=== PATIENT | male | born 1955 | race Two or more races ===

== ENCOUNTER 2021-05-16 14:31 | Inpatient (IN) | payer MEDICAID, OTHER ==
[~2021-05-16] VITALS: Ht 160 cm; Wt 55.5 kg
--- NOTE | 2021-05-16 14:45 | NUR ---
PT BIB [facility]RE. FAMILY CALLED 911 BECAUSE PT HAS HAD POOR ORAL INTAKE X2 WEEKS. PT UNABLE TO GET OOB, EVEN TO USE RR. PER FAMILY, PT HAS NOT HAD A BM IN OVER A WEEK. PT HAS UNCONTROLLED DIABETES. 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 PT RECEIVED 1L NS BY EMS. PT CONFUSED AND FAMIL STATED THAT THEY SOMETIMES DONT UNDERSTAND WHAT HE IS SAYING. PT CACHECTIC, PANTS SOAKED AND SMELLING OF URINE.
[2021-05-16] MEDS ORDERED: SODIUM CHLORIDE 0.9% 1,000ML IVBOLUS ONE ×2 (15:00→17:00)
[2021-05-16] MEDS ORDERED: SODIUM CHLORIDE FLUSH 10ML SYR IVF ONE (15:00)
--- NOTE | 2021-05-16 15:21 | NUR ---
PER FAMILY, OK TO THROW CLOTHES AWAY. PT COVERED IN FECES AND URINE. MULTIPLE SACRAL PRESSURE ULCERS NOTED. PT CLEANED UP, BRIEF PUT ON FOR INCONTINENCE.
--- NOTE | 2021-05-16 15:30 | NUR ---
REPORT GIVEN TO TREVER AHUMADA.
[2021-05-16 15:54] LABS: MEAN CORPUSCULAR HEMOGLOBIN 32.4 pg (27.5-34.5); MEAN CORPUSCULAR HGB CONC 35.2 g/dL (33.2-36.2); MEAN PLATELET VOLUME 10.1 fL (7.4-10.4); PLATELET COUNT 95 x10^3/uL (130-400); RED BLOOD COUNT 3.54 x10^6/uL (4.38-5.82)
--- NOTE | 2021-05-16 16:00 | NUR ---
PT STRAIGHT CATHED PER MD ORDER. PT TOLERATED WELL, UA SENT
[2021-05-16 16:05] LABS: ALANINE AMINOTRANSFERASE 33 U/L (12-78); ALBUMIN 2.1 g/dL (3.4-5.0); ANION GAP 14 mmol/L (5-15); CHLORIDE 87 mmol/L (98-107); CREATININE 0.71 mg/dL (0.7-1.3)
[2021-05-16 16:06] LABS: INTERNATIONAL NORMALIZED RATIO 1.11 (0.93-1.1); PROTHROMBIN TIME 11.9 Seconds (9.6-11.5)
[2021-05-16 16:09] LABS: ALKALINE PHOSPHATASE 163 U/L (45-117); TOTAL PROTEIN 5.6 g/dL (6.4-8.2)
[2021-05-16 16:11] LABS: TROPONIN I 0.149 ng/mL (0.000-0.045)
[2021-05-16 16:27] LABS: MICROSCOPIC INDICATED
[2021-05-16] MEDS ORDERED: POTASSIUM CHLORIDE 20 MEQ PACKET ONE (16:29)
[2021-05-16] MEDS ORDERED: ASPIRIN 81 MG TABLET CHEW ONE (16:29)
[2021-05-16 16:53] LABS: ACETONE, SERUM Large (80mg/dL) (Negative)
[2021-05-16 16:55] LABS: BAND#(MANUAL) 3.15 x10^3/uL; BANDS%(MANUAL) 22 % (0-7); LYMPH#(MANUAL) 0.29 x10^3/uL (1-3.4); LYMPHS% (MANUAL) 2 % (22-44); SEG#(MANUAL) 10.87 x10^3/uL (1.8-6.8); SEGS% (MANUAL) 76 % (42-75)
[2021-05-16 16:56] LABS: <PLATELET ESTIMATE> DECREASED; <PLT MORPHOLOGY> NORMAL PLT MORPH; ECHINOCYTES 1+
--- NOTE | 2021-05-16 16:56 | NUR ---
PT RESTING IN GURNEY COMFORTABLY. FAMILY AT BEDSIDE. IVF INFUSING.
[2021-05-16] MEDS ORDERED: ASPIRIN 81 MG TABLET CHEW PO ONE (17:00)
[2021-05-16] MEDS ORDERED: ONDANSETRON ODT 4 MG PO PRN (17:00)
[2021-05-16] MEDS ORDERED: ONDANSETRON 2MG/ML, 2ML IVPush PRN (17:00)
[2021-05-16] MEDS ORDERED: POTASSIUM CHLORIDE 20 MEQ PACKET PO ONE (17:00)
[2021-05-16] MEDS ORDERED: SODIUM CHLORIDE 0.9% 1,000 ML IV ONE (17:30)
[2021-05-16] MEDS: INSULIN GLARGINE 100 UNITS/ML, PEN SQ-INSULIN SCH ×2 (17:30→20:21)
--- NOTE | 2021-05-16 17:30 | NUR ---
REPORT GIVEN TO ZITA PERERA.
[2021-05-16 17:41] LABS: TROPONIN I 0.159 ng/mL (0.000-0.045)
[2021-05-16] MEDS ORDERED: CEFTRIAXONE 1,000 MG in DEXTROSE 5% 50 ML IVPB SCH (18:00)
[2021-05-16] MEDS ORDERED: NS + 40MEQ KCL 1,000 ML IV SCH (18:04)
[2021-05-16 18:16] VITALS: BP 101/67
[2021-05-16] MEDS: PLEASE ENTER ALLERGIES MC SCH ×2 (18:34→22:12)
[2021-05-16 19:23] VITALS: BP 112/69
[2021-05-16] MEDS: HEPARIN 5,000 UNITS/ML, 1ML SQ SCH (20:20)
[2021-05-16] MEDS: ACETAMINOPHEN 325 MG TABLET PO PRN (20:21)
[2021-05-16] MEDS: ATORVASTATIN 40 MG TABLET PO SCH (20:21)
[2021-05-16] MEDS: INSULIN LISPRO 100 UNITS/ML, PEN SQ-INSULIN SCH (20:22)
[2021-05-16 22:04] LABS: ANION GAP 14 mmol/L (5-15); CALCIUM 8.1 mg/dL (8.5-10.1); CHLORIDE 94 mmol/L (98-107); CREATININE 0.62 mg/dL (0.7-1.3)
[2021-05-16] MEDS ORDERED: VANCOMYCIN PER PHARMACY MC PRN (23:00)
[2021-05-16] MEDS ORDERED: PHARMACOKINETIC MONITORING MC PRN (23:00)
[2021-05-16] MEDS ORDERED: PHARMACOKINETIC CONSULTATION MC ONE (23:00)
[2021-05-16] MEDS ORDERED: VANCOMYCIN 1,200 MG in SODIUM CHLORIDE 0.9% 250 ML IV ONE (23:00)
[2021-05-17] VITALS (9 sets, daily range): BP systolic 89–139; BP diastolic 53–74
[2021-05-17 05:51] LABS: BASOPHILS % (AUTO) 1 % (0-1); EOSINOPHILS % (AUTO) 0 % (1-7); LYMPHOCYTES % (AUTO) 2 % (22-44); MEAN CORPUSCULAR HEMOGLOBIN 32.5 pg (27.5-34.5); MEAN CORPUSCULAR HGB CONC 35.1 g/dL (33.2-36.2); MEAN PLATELET VOLUME 10.6 fL (7.4-10.4); MONOCYTES % (AUTO) 2 % (2-9); NEUTROPHILS % (AUTO) 96 % (42-75); PLATELET COUNT 68 x10^3/uL (130-400); RED BLOOD COUNT 3.16 x10^6/uL (4.38-5.82); RED CELL DISTRIBUTION WIDTH 14.3 % (9.4-14.8)
[2021-05-17 06:01] LABS: ANION GAP 10 mmol/L (5-15); CHLORIDE 97 mmol/L (98-107)
[2021-05-17 06:06] LABS: CREATININE 0.36 mg/dL (0.7-1.3)
[2021-05-17] MEDS ORDERED: OMNIPAQUE 350 MG/ML, 75ML BOTTLE ONE (06:21)
[2021-05-17] MEDS: CEFTRIAXONE 2 GM in DEXTROSE 5% 50 ML IVPB SCH (06:24)
[2021-05-17] MEDS: HEPARIN 5,000 UNITS/ML, 1ML SQ SCH ×2 (06:24→16:39)
[2021-05-17] MEDS: ASPIRIN 325 MG TABLET PO SCH (06:24)
[2021-05-17] MEDS: INSULIN LISPRO 100 UNITS/ML, PEN SQ-INSULIN SCH ×4 (07:00→20:45)
[2021-05-17] MEDS: PLEASE ENTER ALLERGIES MC SCH ×3 (10:00→20:47)
[2021-05-17] MEDS ORDERED: VANCOMYCIN 1,000 MG in SODIUM CHLORIDE 0.9% 100 ML IV SCH (11:00)
[2021-05-17 14:09] LABS: ANION GAP 10 mmol/L (5-15); CALCIUM 8.2 mg/dL (8.5-10.1); CHLORIDE 98 mmol/L (98-107); CREATININE 0.45 mg/dL (0.7-1.3)
[2021-05-17] MEDS: ACETAMINOPHEN 325 MG TABLET PO PRN (16:39)
[2021-05-17] MEDS ORDERED: FUROSEMIDE 20 MG/2 ML IV ONE (17:00)
[2021-05-17] MEDS ORDERED: OMNIPAQUE 350 MG/ML, 100ML BOTTLE ONE (17:42)
[2021-05-17] MEDS ORDERED: NS + 40MEQ KCL 1,000 ML IV SCH (18:04)
[2021-05-17] MEDS: NICOTINE 14MG/24 HR PATCH.TD24 TD SCH (18:10)
[2021-05-17] MEDS: INSULIN GLARGINE 100 UNITS/ML, PEN SQ-INSULIN SCH (20:45)
[2021-05-17] MEDS: ATORVASTATIN 40 MG TABLET PO SCH (20:46)
[2021-05-17] MEDS ORDERED: CARVEDILOL 3.125 MG TABLET PO SCH (21:00)
[2021-05-17 22:11] LABS: ANION GAP 7 mmol/L (5-15); CALCIUM 7.9 mg/dL (8.5-10.1); CHLORIDE 99 mmol/L (98-107); CREATININE 0.38 mg/dL (0.7-1.3)
[2021-05-18 02:00] VITALS: BP 73/41
[2021-05-18] MEDS ORDERED: SODIUM CHLORIDE 0.9% 1,000ML IVBOLUS ONE (02:30)
[2021-05-18 05:17] VITALS: BP 73/38
[2021-05-18 05:23] VITALS: BP 75/48
[2021-05-18] MEDS: ASPIRIN 325 MG TABLET PO SCH (05:24)
[2021-05-18] MEDS: CEFTRIAXONE 2 GM in DEXTROSE 5% 50 ML IVPB SCH (05:24)
[2021-05-18] MEDS: HEPARIN 5,000 UNITS/ML, 1ML SQ SCH (05:24)
[2021-05-18] MEDS ORDERED: SODIUM CHLORIDE 0.9%, 500ML IVBOLUS ONE ×2 (05:30→14:00)
[2021-05-18] MEDS ORDERED: VANCOMYCIN PER PHARMACY MC PRN (06:00)
[2021-05-18 06:26] LABS: MEAN CORPUSCULAR HEMOGLOBIN 31.8 pg (27.5-34.5); MEAN CORPUSCULAR HGB CONC 34.1 g/dL (33.2-36.2); MEAN PLATELET VOLUME 11.2 fL (7.4-10.4); RED BLOOD COUNT 2.59 x10^6/uL (4.38-5.82); RED CELL DISTRIBUTION WIDTH 14.5 % (9.4-14.8)
[2021-05-18] MEDS ORDERED: PHARMACOKINETIC CONSULTATION MC ONE (06:30)
[2021-05-18] MEDS ORDERED: PHARMACOKINETIC MONITORING MC PRN (06:30)
[2021-05-18 06:38] LABS: ANION GAP 9 mmol/L (5-15); CALCIUM 7.3 mg/dL (8.5-10.1); CHLORIDE 101 mmol/L (98-107); CREATININE 0.26 mg/dL (0.7-1.3)
[2021-05-18] MEDS: VANCOMYCIN 1,000 MG in SODIUM CHLORIDE 0.9% 100 ML IV SCH ×2 (06:45→18:11)
[2021-05-18 07:00] LABS: PLATELET COUNT 48 x10^3/uL (130-400)
[2021-05-18] MEDS: INSULIN LISPRO 100 UNITS/ML, PEN SQ-INSULIN SCH ×4 (07:00→20:58)
[2021-05-18 07:02] LABS: EOS#(MANUAL) 0.14 x10^3/uL (0.0-0.4); EOS% (MANUAL) 1 % (1-7); MONOS#(MANUAL) 0.28 x10^3/uL (0.3-2.7); MONOS% (MANUAL) 2 % (2-9)
[2021-05-18 07:03] LABS: BAND#(MANUAL) 1.53 x10^3/uL; BANDS%(MANUAL) 11 % (0-7); LYMPH#(MANUAL) 0.28 x10^3/uL (1-3.4); LYMPHS% (MANUAL) 2 % (22-44); SEG#(MANUAL) 11.68 x10^3/uL (1.8-6.8); SEGS% (MANUAL) 84 % (42-75); TOXIC GRAN 1+
[2021-05-18 07:04] LABS: ECHINOCYTES 1+; PMNS WITH VACUOLES 1+
[2021-05-18 07:05] LABS: <PLATELET ESTIMATE> DECREASED; LARGE PLATELETS 1+
[2021-05-18 07:58] VITALS: BP 71/41
[2021-05-18 08:09] VITALS: BP 70/43
[2021-05-18] MEDS ORDERED: NOREPINEPHRINE 1 MG/ML, 4ML ONE (08:57)
[2021-05-18 09:20] VITALS: BP 76/48
[2021-05-18] MEDS ORDERED: POTASSIUM CHLORIDE 40 MEQ in SODIUM CHLORIDE 0.9% 100 ML IV ONE (09:30)
[2021-05-18 09:39] LABS: D-DIMER (DIC) 3.82 ug/mlFEU (0.00-0.52); PROTIME 11.9 Seconds (9.6-11.5)
[2021-05-18] MEDS ORDERED: FENTANYL PF 100 MCG/2ML ONE (09:47)
[2021-05-18] MEDS ORDERED: FENTANYL PF 100 MCG/2ML IV ONE (10:00)
[2021-05-18] MEDS ORDERED: MAGNESIUM SULFATE PMX 2GM/50ML 50 ML IV ONE (10:30)
[2021-05-18] MEDS ORDERED: DEXTROSE 50%, 50ML SYRINGE ONE (11:39)
[2021-05-18] MEDS ORDERED: DEXTROSE 4 GM TAB.CHEW PO PRN (12:00)
[2021-05-18] MEDS ORDERED: DEXTROSE 50%, 50ML SYRINGE IVPush PRN (12:00)
[2021-05-18] MEDS ORDERED: GLUCAGON 1 MG IM PRN (12:00)
[2021-05-18] MEDS ORDERED: ETOMIDATE 20 MG/10 ML IVPush ONE (12:30)
[2021-05-18] MEDS ORDERED: MIDAZOLAM 1 MG/ML, 5ML IVPush ONE (12:30)
[2021-05-18] MEDS: PROPOFOL 100 ML IV PRN ×2 (12:33→22:35)
[2021-05-18] MEDS ORDERED: PHARMACY MAY ADJ FOR RENAL FX MC SCH (13:00)
[2021-05-18] MEDS ORDERED: LIDOCAINE-MPF 1%, 2ML ENDO PRN (13:00)
[2021-05-18] MEDS ORDERED: FENTANYL PF 100 MCG/2ML IVPush PRN (13:00)
[2021-05-18] MEDS ORDERED: VASOPRESSIN 20 UNIT in SODIUM CHLORIDE 0.9% 99 ML IV PRN (14:00)
[2021-05-18] MEDS: SODIUM CHLORIDE 0.9% 1,000 ML IV SCH (14:03)
[2021-05-18] MEDS: NOREPINEPHRINE 8 MG in SODIUM CHLORIDE 0.9% 242 ML IV PRN ×2 (16:47→22:36)
[2021-05-18] MEDS: NICOTINE 14MG/24 HR PATCH.TD24 TD SCH (17:26)
[2021-05-18] MEDS: ATORVASTATIN 40 MG TABLET PO SCH (20:57)
[2021-05-18] MEDS: SODIUM CHLORIDE FLUSH 10ML SYR IVF SCH (20:57)
[2021-05-19] MEDS: SODIUM CHLORIDE 0.9% 1,000 ML IV SCH ×2 (02:41→09:20)
[2021-05-19] MEDS: INSULIN LISPRO 100 UNITS/ML, PEN SQ-INSULIN SCH ×4 (04:18→20:27)
[2021-05-19 04:47] LABS: BASOPHILS % (AUTO) 0 % (0-1); EOSINOPHILS % (AUTO) 0 % (1-7); LYMPHOCYTES % (AUTO) 3 % (22-44); MEAN CORPUSCULAR HEMOGLOBIN 31.8 pg (27.5-34.5); MEAN CORPUSCULAR HGB CONC 34.2 g/dL (33.2-36.2); MEAN PLATELET VOLUME 10.5 fL (7.4-10.4); MONOCYTES % (AUTO) 2 % (2-9); NEUTROPHILS % (AUTO) 95 % (42-75); PLATELET COUNT 59 x10^3/uL (130-400); RED BLOOD COUNT 2.72 x10^6/uL (4.38-5.82); RED CELL DISTRIBUTION WIDTH 14.8 % (9.4-14.8)
[2021-05-19 04:56] LABS: ANION GAP 10 mmol/L (5-15); CALCIUM 6.8 mg/dL (8.5-10.1); CHLORIDE 107 mmol/L (98-107); CREATININE 0.28 mg/dL (0.7-1.3)
[2021-05-19] MEDS: CEFTRIAXONE 2 GM in DEXTROSE 5% 50 ML IVPB SCH (06:30)
[2021-05-19] MEDS ORDERED: CALCIUM GLUCONATE 4.6 MEQ in SODIUM CHLORIDE 0.9% 100 ML IV ONE (06:30)
[2021-05-19] MEDS ORDERED: POTASSIUM CHLORIDE 20 MEQ PACKET PO ONE (06:30)
[2021-05-19] MEDS: ASPIRIN 325 MG TABLET PO SCH (06:31)
[2021-05-19] MEDS: VANCOMYCIN 1,000 MG in SODIUM CHLORIDE 0.9% 100 ML IV SCH ×2 (07:30→18:35)
[2021-05-19] MEDS: NOREPINEPHRINE 8 MG in SODIUM CHLORIDE 0.9% 242 ML IV PRN ×3 (08:37→21:40)
[2021-05-19] MEDS: SODIUM CHLORIDE FLUSH 10ML SYR IVF SCH ×2 (09:18→20:27)
--- NOTE | 2021-05-19 12:05 | NUR ---
TF per RD recs: trickle feeds w/ end goal rate of 20mL/hr per MD verbal/phone order. Recommend changing TF formula to Vital AF 1.2 semi-elemental formula to promote increased TF tolerance while on high pressor rate and with severe PCM. Recommend Thiamine for metabolic support. Recommend monitoring serum phosphorus and magnesium daily and replete as needed d/t severe PCM and high refeeding risk.
[2021-05-19] MEDS: FENTANYL PF 1,000 MCG in SODIUM CHLORIDE 0.9% 80 ML IV PRN (15:26)
[2021-05-19] MEDS: NICOTINE 14MG/24 HR PATCH.TD24 TD SCH (15:43)
[2021-05-19] MEDS: PROPOFOL 100 ML IV PRN (18:38)
[2021-05-19] MEDS: ATORVASTATIN 40 MG TABLET PO SCH (20:27)
[2021-05-20] MEDS: SODIUM CHLORIDE 0.9% 1,000 ML IV SCH (00:27)
[2021-05-20] MEDS: NOREPINEPHRINE 8 MG in SODIUM CHLORIDE 0.9% 242 ML IV PRN ×4 (03:22→23:18)
[2021-05-20] MEDS: FENTANYL PF 1,000 MCG in SODIUM CHLORIDE 0.9% 80 ML IV PRN ×2 (03:22→15:36)
[2021-05-20 03:59] LABS: BASOPHILS % (AUTO) 0 % (0-1); EOSINOPHILS % (AUTO) 0 % (1-7); LYMPHOCYTES % (AUTO) 3 % (22-44); MEAN CORPUSCULAR HEMOGLOBIN 32.2 pg (27.5-34.5); MEAN CORPUSCULAR HGB CONC 34.9 g/dL (33.2-36.2); MEAN PLATELET VOLUME 10.1 fL (7.4-10.4); MONOCYTES % (AUTO) 3 % (2-9); NEUTROPHILS % (AUTO) 94 % (42-75); PLATELET COUNT 65 x10^3/uL (130-400); RED BLOOD COUNT 2.75 x10^6/uL (4.38-5.82); RED CELL DISTRIBUTION WIDTH 15.4 % (9.4-14.8)
[2021-05-20 04:02] LABS: ANION GAP 13 mmol/L (5-15); CALCIUM 6.6 mg/dL (8.5-10.1); CHLORIDE 108 mmol/L (98-107); CREATININE 0.25 mg/dL (0.7-1.3)
[2021-05-20] MEDS: VANCOMYCIN 1,000 MG in SODIUM CHLORIDE 0.9% 100 ML IV SCH (05:24)
[2021-05-20] MEDS: CEFTRIAXONE 2 GM in DEXTROSE 5% 50 ML IVPB SCH (05:24)
[2021-05-20] MEDS: INSULIN LISPRO 100 UNITS/ML, PEN SQ-INSULIN SCH ×4 (05:29→20:07)
[2021-05-20] MEDS ORDERED: MAGNESIUM SULFATE PMX 2GM/50ML 50 ML IV ONE (06:30)
[2021-05-20] MEDS ORDERED: CALCIUM CHLORIDE 27.2 MEQ in SODIUM CHLORIDE 0.9% 100 ML IV ONE (06:30)
[2021-05-20] MEDS: SODIUM CHLORIDE FLUSH 10ML SYR IVF SCH ×2 (09:00→20:05)
[2021-05-20] MEDS: METHYLNALTREXONE 12 MG/0.6 ML SYR SQ SCH (09:01)
[2021-05-20] MEDS: POTASSIUM CHLORIDE 20 MEQ PACKET PO SCH ×2 (09:01→20:05)
[2021-05-20] MEDS: POTASSIUM CHLORIDE 10 MEQ in LACTATED RINGERS 1,000 ML IV SCH (10:04)
[2021-05-20] MEDS: PROPOFOL 100 ML IV PRN ×2 (10:05→20:05)
[2021-05-20] MEDS: NICOTINE 14MG/24 HR PATCH.TD24 TD SCH (16:17)
[2021-05-20] MEDS: ATORVASTATIN 40 MG TABLET PO SCH (20:04)
[2021-05-21] MEDS: POTASSIUM CHLORIDE 10 MEQ in LACTATED RINGERS 1,000 ML IV SCH (00:17)
[2021-05-21] MEDS: FENTANYL PF 1,000 MCG in SODIUM CHLORIDE 0.9% 80 ML IV PRN ×3 (02:31→20:27)
[2021-05-21] MEDS: INSULIN LISPRO 100 UNITS/ML, PEN SQ-INSULIN SCH ×4 (03:00→20:38)
[2021-05-21] MEDS: CEFTRIAXONE 2 GM in DEXTROSE 5% 50 ML IVPB SCH (04:52)
[2021-05-21] MEDS: NOREPINEPHRINE 8 MG in SODIUM CHLORIDE 0.9% 242 ML IV PRN ×3 (04:52→20:25)
[2021-05-21 05:17] LABS: BASOPHILS % (AUTO) 0 % (0-1); EOSINOPHILS % (AUTO) 0 % (1-7); LYMPHOCYTES % (AUTO) 4 % (22-44); MEAN CORPUSCULAR HEMOGLOBIN 31.7 pg (27.5-34.5); MEAN CORPUSCULAR HGB CONC 34.3 g/dL (33.2-36.2); MEAN PLATELET VOLUME 9.5 fL (7.4-10.4); MONOCYTES % (AUTO) 3 % (2-9); NEUTROPHILS % (AUTO) 93 % (42-75); PLATELET COUNT 73 x10^3/uL (130-400); RED BLOOD COUNT 2.78 x10^6/uL (4.38-5.82); RED CELL DISTRIBUTION WIDTH 15.3 % (9.4-14.8)
[2021-05-21] MEDS: PROPOFOL 100 ML IV PRN ×2 (05:22→17:10)
[2021-05-21 06:04] LABS: ANION GAP 11 mmol/L (5-15); CALCIUM 7.3 mg/dL (8.5-10.1); CHLORIDE 111 mmol/L (98-107); CREATININE 0.27 mg/dL (0.7-1.3)
[2021-05-21] MEDS: MIDODRINE 5 MG TABLET PO SCH ×3 (09:00→20:27)
[2021-05-21] MEDS: SODIUM CHLORIDE FLUSH 10ML SYR IVF SCH ×2 (09:01→20:28)
[2021-05-21] MEDS ORDERED: FILTER, DISP 1.2 MICRON FOR TPN/PVN IV PRN (11:00)
[2021-05-21] MEDS ORDERED: POTASSIUM CHLORIDE 10 MEQ in LACTATED RINGERS 1,000 ML IV SCH (11:00)
[2021-05-21] MEDS: NICOTINE 14MG/24 HR PATCH.TD24 TD SCH (16:17)
[2021-05-21] MEDS ORDERED: TPN PER PHARMACY MC SCH (17:00)
[2021-05-21] MEDS ORDERED: STERILE WATER IV SCH (17:00)
[2021-05-21] MEDS ORDERED: AMINO ACID 10% IV SCH (17:00)
[2021-05-21] MEDS ORDERED: [UNRECOGNIZED DRUG - OTHER] IV SCH (17:00)
[2021-05-21] MEDS ORDERED: DEXTROSE 70% IV SCH (17:00)
[2021-05-21] MEDS ORDERED: DEXTROSE 10% 500 ML IV PRN (17:00)
[2021-05-21] MEDS: ATORVASTATIN 40 MG TABLET PO SCH (20:27)
[2021-05-22] MEDS: NOREPINEPHRINE 8 MG in SODIUM CHLORIDE 0.9% 242 ML IV PRN ×3 (02:17→18:12)
[2021-05-22] MEDS: INSULIN LISPRO 100 UNITS/ML, PEN SQ-INSULIN SCH ×4 (03:00→20:59)
[2021-05-22] MEDS: FENTANYL PF 1,000 MCG in SODIUM CHLORIDE 0.9% 80 ML IV PRN ×3 (04:43→20:09)
[2021-05-22] MEDS: CEFTRIAXONE 2 GM in DEXTROSE 5% 50 ML IVPB SCH (04:47)
[2021-05-22] MEDS: PROPOFOL 100 ML IV PRN ×2 (04:49→16:44)
[2021-05-22 05:15] LABS: BASOPHILS % (AUTO) 0 % (0-1); EOSINOPHILS % (AUTO) 0 % (1-7); LYMPHOCYTES % (AUTO) 5 % (22-44); MEAN CORPUSCULAR HEMOGLOBIN 31.8 pg (27.5-34.5); MEAN CORPUSCULAR HGB CONC 34.1 g/dL (33.2-36.2); MEAN PLATELET VOLUME 9.8 fL (7.4-10.4); MONOCYTES % (AUTO) 2 % (2-9); NEUTROPHILS % (AUTO) 93 % (42-75); PLATELET COUNT 61 x10^3/uL (130-400); RED BLOOD COUNT 2.73 x10^6/uL (4.38-5.82); RED CELL DISTRIBUTION WIDTH 15.8 % (9.4-14.8)
[2021-05-22 05:45] LABS: ANISOCYTOSIS 1+; ECHINOCYTES 1+; POLYCHROMASIA 1+
[2021-05-22 05:47] LABS: <PLATELET ESTIMATE> DECREASED; <PLT MORPHOLOGY> NORMAL PLT MORPH; ACANTHOCYTES 1+; SPHEROCYTES 1+
[2021-05-22 06:14] LABS: ALANINE AMINOTRANSFERASE 32 U/L (12-78); ANION GAP 8 mmol/L (5-15); CALCIUM 6.9 mg/dL (8.5-10.1); CHLORIDE 109 mmol/L (98-107); CREATININE 0.34 mg/dL (0.7-1.3); TRIGLYCERIDES 65 mg/dL (50-200)
[2021-05-22 06:21] LABS: ALKALINE PHOSPHATASE 492 U/L (45-117); BILIRUBIN,TOTAL 1.3 mg/dL (0.2-1.0); TOTAL PROTEIN 4.6 g/dL (6.4-8.2)
[2021-05-22 06:23] LABS: PREALBUMIN < 3.0 mg/dL (20.0-40.0)
[2021-05-22] MEDS ORDERED: CALCIUM GLUCONATE 9.2 MEQ in SODIUM CHLORIDE 0.9% 100 ML IV ONE (07:00)
[2021-05-22] MEDS: SODIUM CHLORIDE FLUSH 10ML SYR IVF SCH ×2 (07:31→20:40)
[2021-05-22] MEDS: METHYLNALTREXONE 12 MG/0.6 ML SYR SQ SCH (09:25)
[2021-05-22] MEDS: MIDODRINE 5 MG TABLET PO SCH ×3 (09:25→20:40)
[2021-05-22] MEDS: NICOTINE 14MG/24 HR PATCH.TD24 TD SCH (16:27)
[2021-05-22] MEDS: LACTATED RINGERS 1,000 ML IV SCH (16:44)
[2021-05-22] MEDS ORDERED: AMINO ACID 10% IV SCH (17:00)
[2021-05-22] MEDS ORDERED: SOY IV SCH (17:00)
[2021-05-22] MEDS ORDERED: FAT EMUL IV SCH (17:00)
[2021-05-22] MEDS ORDERED: MCT IV SCH (17:00)
[2021-05-22] MEDS ORDERED: FILTER, DISP 1.2 MICRON FOR TPN/PVN IV PRN (17:00)
[2021-05-22] MEDS ORDERED: OLIV IV SCH (17:00)
[2021-05-22] MEDS ORDERED: FISH OIL IV SCH (17:00)
[2021-05-22] MEDS ORDERED: DEXTROSE 70% IV SCH (17:00)
[2021-05-22] MEDS ORDERED: [UNRECOGNIZED DRUG - OTHER] IV SCH (17:00)
[2021-05-22] MEDS: ATORVASTATIN 40 MG TABLET PO SCH (20:40)
[2021-05-23] MEDS: PROPOFOL 100 ML IV PRN ×2 (03:18→14:21)
[2021-05-23] MEDS: INSULIN LISPRO 100 UNITS/ML, PEN SQ-INSULIN SCH ×4 (03:21→21:00)
[2021-05-23 04:00] LABS: BASOPHILS % (AUTO) 0 % (0-1); EOSINOPHILS % (AUTO) 0 % (1-7); LYMPHOCYTES % (AUTO) 4 % (22-44); MEAN CORPUSCULAR HEMOGLOBIN 31.4 pg (27.5-34.5); MEAN PLATELET VOLUME 10.2 fL (7.4-10.4); MONOCYTES % (AUTO) 2 % (2-9); NEUTROPHILS % (AUTO) 94 % (42-75); PLATELET COUNT 62 x10^3/uL (130-400); RED CELL DISTRIBUTION WIDTH 15.5 % (9.4-14.8)
[2021-05-23 04:09] LABS: ANION GAP 5 mmol/L (5-15); CALCIUM 6.7 mg/dL (8.5-10.1); CHLORIDE 108 mmol/L (98-107); CREATININE 0.33 mg/dL (0.7-1.3)
[2021-05-23] MEDS: FENTANYL PF 2,500 MCG in SODIUM CHLORIDE 0.9% 200 ML IV PRN (05:07)
[2021-05-23] MEDS: NOREPINEPHRINE 8 MG in SODIUM CHLORIDE 0.9% 242 ML IV PRN ×2 (05:08→16:32)
[2021-05-23] MEDS: CEFTRIAXONE 2 GM in DEXTROSE 5% 50 ML IVPB SCH (05:08)
[2021-05-23] MEDS: SODIUM CHLORIDE FLUSH 10ML SYR IVF SCH ×2 (09:49→21:56)
[2021-05-23] MEDS: MIDODRINE 5 MG TABLET PO SCH ×3 (09:49→21:56)
[2021-05-23] MEDS: PANTOPRAZOLE 40 MG IV IVPush SCH (09:49)
[2021-05-23] MEDS ORDERED: CALCIUM CHLORIDE 27.2 MEQ in SODIUM CHLORIDE 0.9% 100 ML IV ONE (10:00)
[2021-05-23] MEDS ORDERED: PANTOPRAZOLE 40 MG IV IVPush SCH (14:00)
[2021-05-23] MEDS ORDERED: SOY IV SCH (17:00)
[2021-05-23] MEDS ORDERED: FAT EMUL IV SCH (17:00)
[2021-05-23] MEDS ORDERED: FISH OIL IV SCH (17:00)
[2021-05-23] MEDS ORDERED: AMINO ACID 10% IV SCH (17:00)
[2021-05-23] MEDS ORDERED: MCT IV SCH (17:00)
[2021-05-23] MEDS ORDERED: FILTER, DISP 1.2 MICRON FOR TPN/PVN IV PRN (17:00)
[2021-05-23] MEDS ORDERED: OLIV IV SCH (17:00)
[2021-05-23] MEDS ORDERED: [UNRECOGNIZED DRUG - OTHER] IV SCH (17:00)
[2021-05-23] MEDS ORDERED: DEXTROSE 70% IV SCH (17:00)
[2021-05-23] MEDS: NICOTINE 14MG/24 HR PATCH.TD24 TD SCH (17:18)
[2021-05-23] MEDS: ATORVASTATIN 40 MG TABLET PO SCH (21:56)
[2021-05-24] MEDS: LACTATED RINGERS 1,000 ML IV SCH (01:05)
[2021-05-24] MEDS: INSULIN LISPRO 100 UNITS/ML, PEN SQ-INSULIN SCH ×5 (02:52→23:18)
[2021-05-24] MEDS: NOREPINEPHRINE 8 MG in SODIUM CHLORIDE 0.9% 242 ML IV PRN ×3 (02:55→22:05)
[2021-05-24] MEDS: PROPOFOL 100 ML IV PRN ×3 (02:56→16:54)
[2021-05-24] MEDS: FENTANYL PF 2,500 MCG in SODIUM CHLORIDE 0.9% 200 ML IV PRN ×2 (02:56→16:52)
[2021-05-24 03:00] LABS: BASOPHILS % (AUTO) 0 % (0-1); EOSINOPHILS % (AUTO) 0 % (1-7); LYMPHOCYTES % (AUTO) 4 % (22-44); MEAN CORPUSCULAR HGB CONC 34.2 g/dL (33.2-36.2); MEAN PLATELET VOLUME 10.2 fL (7.4-10.4); MONOCYTES % (AUTO) 2 % (2-9); NEUTROPHILS % (AUTO) 93 % (42-75); PLATELET COUNT 50 x10^3/uL (130-400); RED BLOOD COUNT 2.67 x10^6/uL (4.38-5.82); RED CELL DISTRIBUTION WIDTH 15.5 % (9.4-14.8)
[2021-05-24] MEDS: CEFTRIAXONE 2 GM in DEXTROSE 5% 50 ML IVPB SCH (05:54)
[2021-05-24 07:34] LABS: ANION GAP 6 mmol/L (5-15); CALCIUM 7.2 mg/dL (8.5-10.1); CHLORIDE 106 mmol/L (98-107); CREATININE 0.36 mg/dL (0.7-1.3)
[2021-05-24] MEDS: SODIUM CHLORIDE FLUSH 10ML SYR IVF SCH ×2 (09:43→19:57)
[2021-05-24] MEDS: PANTOPRAZOLE 40 MG IV IVPush SCH (09:43)
[2021-05-24] MEDS: METHYLNALTREXONE 12 MG/0.6 ML SYR SQ SCH (09:44)
[2021-05-24] MEDS: MIDODRINE 5 MG TABLET PO SCH ×3 (09:44→19:57)
[2021-05-24 10:13] LABS: ANION GAP 5 mmol/L (5-15); CALCIUM 7.1 mg/dL (8.5-10.1); CHLORIDE 106 mmol/L (98-107); CREATININE 0.43 mg/dL (0.7-1.3)
[2021-05-24] MEDS ORDERED: [UNRECOGNIZED DRUG - OTHER] IV SCH (17:00)
[2021-05-24] MEDS ORDERED: FAT EMUL IV SCH (17:00)
[2021-05-24] MEDS ORDERED: MCT IV SCH (17:00)
[2021-05-24] MEDS ORDERED: DEXTROSE 70% IV SCH (17:00)
[2021-05-24] MEDS ORDERED: AMINO ACID 10% IV SCH (17:00)
[2021-05-24] MEDS ORDERED: SOY IV SCH (17:00)
[2021-05-24] MEDS ORDERED: OLIV IV SCH (17:00)
[2021-05-24] MEDS ORDERED: FISH OIL IV SCH (17:00)
[2021-05-24] MEDS: NICOTINE 14MG/24 HR PATCH.TD24 TD SCH (17:09)
[2021-05-24] MEDS: ATORVASTATIN 40 MG TABLET PO SCH (19:57)
[2021-05-25] MEDS: PROPOFOL 100 ML IV PRN ×2 (02:42→08:36)
[2021-05-25] MEDS: INSULIN LISPRO 100 UNITS/ML, PEN SQ-INSULIN SCH ×2 (04:31→11:00)
[2021-05-25] MEDS: CEFTRIAXONE 2 GM in DEXTROSE 5% 50 ML IVPB SCH (04:32)
[2021-05-25 04:38] LABS: BASOPHILS % (AUTO) 0 % (0-1); EOSINOPHILS % (AUTO) 0 % (1-7); LYMPHOCYTES % (AUTO) 5 % (22-44); MEAN CORPUSCULAR HEMOGLOBIN 31.3 pg (27.5-34.5); MEAN CORPUSCULAR HGB CONC 34.3 g/dL (33.2-36.2); MEAN PLATELET VOLUME 10.4 fL (7.4-10.4); MONOCYTES % (AUTO) 4 % (2-9); NEUTROPHILS % (AUTO) 91 % (42-75); RED BLOOD COUNT 2.67 x10^6/uL (4.38-5.82); RED CELL DISTRIBUTION WIDTH 15.5 % (9.4-14.8)
[2021-05-25 04:43] LABS: PLATELET COUNT 43 x10^3/uL (130-400)
[2021-05-25 04:54] LABS: ANION GAP 3 mmol/L (5-15); CALCIUM 7.1 mg/dL (8.5-10.1); CHLORIDE 105 mmol/L (98-107); CREATININE 0.39 mg/dL (0.7-1.3)
[2021-05-25] MEDS ORDERED: LACTULOSE 20 GM/30 ML UDC PO PRN (08:30)
[2021-05-25] MEDS ORDERED: BISACODYL 10 MG SUPP PR PRN (08:30)
[2021-05-25] MEDS: NOREPINEPHRINE 8 MG in SODIUM CHLORIDE 0.9% 242 ML IV PRN (08:36)
[2021-05-25] MEDS: FENTANYL PF 2,500 MCG in SODIUM CHLORIDE 0.9% 200 ML IV PRN (08:36)
[2021-05-25] MEDS: PANTOPRAZOLE 40 MG IV IVPush SCH (08:37)
[2021-05-25] MEDS: SODIUM CHLORIDE FLUSH 10ML SYR IVF SCH (08:37)
[2021-05-25] MEDS: MIDODRINE 5 MG TABLET PO SCH (08:37)
[2021-05-25 08:58] LABS: HCT (SEDRATE) 24.4 % (39.2-51.8)
[2021-05-25] MEDS ORDERED: DOCUSATE 50 MG/5 ML, 10ML UDC PO SCH (09:00)
[2021-05-25] MEDS ORDERED: LORazepam 2 MG/ML, 1ML IV ONE (15:00)
[2021-05-25] MEDS ORDERED: LORazepam 2 MG/ML, 1ML IV PRN (15:00)
[2021-05-25] MEDS ORDERED: MORPHINE SULFATE 4 MG/ML, 1ML IV PRN (15:00)
[2021-05-25] MEDS ORDERED: ONDANSETRON 2MG/ML, 2ML IV PRN (15:00)
[2021-05-25] MEDS ORDERED: MORPHINE SULFATE 4 MG/ML, 1ML IV ONE (15:00)
[2021-05-25] MEDS ORDERED: ATROPINE OPHTH SOLN 1%, 5ML PO PRN (15:00)
[2021-05-25] MEDS ORDERED: DEXTROSE 70% IV SCH (17:00)
[2021-05-25] MEDS ORDERED: [UNRECOGNIZED DRUG - OTHER] IV SCH (17:00)
[2021-05-25] MEDS ORDERED: AMINO ACID 10% IV SCH (17:00)
[2021-05-25] MEDS ORDERED: STERILE WATER IV SCH (17:00)
[2021-05-25] MEDS ORDERED: SENNA 176 MG/5 ML ORAL SOL NG SCH (21:00)
== END 2021-05-25 20:42 | disposition expired | DRG 870 ==
LOC: ED 15:24 → EDIP 16:35 → 4EST 18:01 → CCU 05-18 08:54
PROVIDERS: ADMIT Internal Medicine; ATTEND Internal Medicine
PROC: 0T9B70Z Drainage of Bladder with Drainage Device, Via Natural or Artificial Opening (ICD-10-PCS; 2021-05-16)
PROC: 5A0935A Assistance with Respiratory Ventilation, Less than 24 Consecutive Hours, High Flow/Velocity Cannula (ICD-10-PCS; 2021-05-17)
PROC: 0BH17EZ Insertion of Endotracheal Airway into Trachea, Via Natural or Artificial Opening (ICD-10-PCS; 2021-05-18)
PROC: 0B9J8ZZ Drainage of Left Lower Lung Lobe, Via Natural or Artificial Opening Endoscopic (ICD-10-PCS; 2021-05-18)
PROC: 0B9F8ZZ Drainage of Right Lower Lung Lobe, Via Natural or Artificial Opening Endoscopic (ICD-10-PCS; 2021-05-18)
PROC: 02H633Z Insertion of Infusion Device into Right Atrium, Percutaneous Approach (ICD-10-PCS; 2021-05-18)
PROC: B548ZZA Ultrasonography of Superior Vena Cava, Guidance (ICD-10-PCS; 2021-05-18)
PROC: 5A0935A Assistance with Respiratory Ventilation, Less than 24 Consecutive Hours, High Flow/Velocity Cannula (ICD-10-PCS; 2021-05-18)
PROC: 5A1955Z Respiratory Ventilation, Greater than 96 Consecutive Hours (ICD-10-PCS; principal; 2021-05-19)
PROC: 5A0935A Assistance with Respiratory Ventilation, Less than 24 Consecutive Hours, High Flow/Velocity Cannula (ICD-10-PCS; 2021-05-25)
DX: A40.1 Sepsis due to streptococcus, group B (principal); E11.10 Type 2 diabetes mellitus with ketoacidosis without coma; S72.112A Displaced fracture of greater trochanter of left femur, initial encounter for closed fracture; E43 Unspecified severe protein-calorie malnutrition; I21.A1 Myocardial infarction type 2; J18.9 Pneumonia, unspecified organism; J96.01 Acute respiratory failure with hypoxia; R65.21 Severe sepsis with septic shock; E87.1 Hypo-osmolality and hyponatremia; I50.32 Chronic diastolic (congestive) heart failure; M48.50XA Collapsed vertebra, not elsewhere classified, site unspecified, initial encounter for fracture; N13.6 Pyonephrosis; L98.428 Non-pressure chronic ulcer of back with other specified severity; Z51.5 Encounter for palliative care; Z66 Do not resuscitate; D64.9 Anemia, unspecified; D69.59 Other secondary thrombocytopenia; E83.51 Hypocalcemia; E83.52 Hypercalcemia; E87.6 Hypokalemia; F17.210 Nicotine dependence, cigarettes, uncomplicated; I11.0 Hypertensive heart disease with heart failure; K76.89 Other specified diseases of liver; R62.7 Adult failure to thrive; X58.XXXA Exposure to other specified factors, initial encounter; Z63.8 Other specified problems related to primary support group; Z91.14 Patient's other noncompliance with medication regimen; Z59.0 Homelessness; Z68.21 Body mass index [BMI] 21.0-21.9, adult; Z79.899 Other long term (current) drug therapy; Y93.89 Activity, other specified; Y92.89 Other specified places as the place of occurrence of the external cause; Y99.8 Other external cause status
CPT/HCPCS: 36415; 36600; 84145; 84155; 84156; 99291; J3475; 31622; 71045; 71275; 74177; 80048; 80053; 81001; 82010; 82105; 82140; 82330; 82533; 82803; 82947; 82962; 83036; 83605; 83690; 83735; 83880; 84100; 84134; 84153; 84165; 84166; 84443; 84478; 84484; 85014; 85018; 85025; 85049; 85379; 85384; 85610; 85651; 85730; 86140; 87040; 87070; 87081; 87086; 87147; 87181; 87205; 93005; 93306; 94002; 94003; G0378; J0610; J0696; J1644; J1815; J2250; J2704; J3010; J3370; J3411; J3480; J7030; Q9967; C9113; G0103; J1940; J2060; J2270; J3420; J7040; J7050; J7120